=== PATIENT | female | born 2000 | race Two or more races ===

== ENCOUNTER 2023-12-28 13:55 | Outpatient (CLI) | payer MEDICAID, SELFPAY ==
--- NOTE | 2023-12-28 14:00 | CRLHL7_ITS ---
For Patients: As a result of the Cures Act, medical imaging exams and procedure reports are released immediately into your electronic medical record. You may view this report before your referring provider. If you have questions, please contact your health care provider. INDICATION: First trimester scan, establish dates. COMPARISON: None. TECHNIQUE: Real-time otero-scale imaging of the pelvis was performed. FINDINGS: Sonographic imaging demonstrates a single living intrauterine gestation. The embryo demonstrates a regular cardiac rate measuring 167 beats per minute. The embryo`s crown-rump length measurement of 5.9 cm corresponds to a gestational age of 12 weeks 3 days with a sonographic due date of 07/08/2024. Yolk sac not visualized. There are no gross abnormalities noted within the embryo at this early state of development. The gestational sac has a normal appearance. There is n a 10 x 6 x 8 millimeter superior perigestational hemorrhage. The amount of fluid within the sac appears appropriate for gestational age. The cervix is closed. The myometrium appears normal. The ovaries are of normal size. There are no suspicious fluid collections noted in the cul-de-sac. IMPRESSION: Single living intrauterine with sonographic gestational age 12 weeks 3 days and a sonographic due date of 07/08/2024. Subchorionic hemorrhage measuring 10 x 6 x 8 millimeters. Dictated by Ferny Wright MD @ 12/29/2023 10:05:18 AM (Electronically Signed)
== END 2023-12-28 13:56 | disposition home or self-care (01) ==
LOC: US 13:57
PROVIDERS: Visit Provider Physician Assistant
DX: Z34.91 Encounter for supervision of normal pregnancy, unspecified, first trimester (principal); O20.9 Hemorrhage in early pregnancy, unspecified; Z3A.12 12 weeks gestation of pregnancy
CPT/HCPCS: 76801; 76817; 86592; 86703; 86704; 86706; 86762; 86787; 86803; 86850; 86900; 86901; 87086; 87340; 87491; 87591; T1013

== ENCOUNTER 2023-12-28 15:02 | Outpatient (CLI) | payer MEDICAID, SELFPAY ==
[2023-12-28 21:07] LABS: Chlamydia DNA Amplified* NOT DETECTED (No Detected); GC DNA Amplified* NOT DETECTED (No Detected)
== END 2023-12-28 15:03 | disposition home or self-care (01) ==
PROVIDERS: Visit Provider Physician Assistant
DX: Z34.91 Encounter for supervision of normal pregnancy, unspecified, first trimester (principal); Z3A.12 12 weeks gestation of pregnancy
CPT/HCPCS: 86592; 86703; 86704; 86706; 86762; 86787; 86803; 86850; 86900; 86901; 87086; 87340; 87491; 87591

== ENCOUNTER 2024-04-18 09:48 | Outpatient (CLI) | payer MEDICAID, SELFPAY | END 2024-04-18 09:49 | disposition home or self-care (01) | LOC: NFLDREF 04-20 03:10 | PROVIDERS: Visit Provider Physician Assistant | DX: Z34.03 Encounter for supervision of normal first pregnancy, third trimester (principal) | CPT/HCPCS: 86592 ==

== ENCOUNTER 2024-05-20 13:56 | Outpatient (CLI) | payer MEDICAID, SELFPAY | END 2024-05-20 13:57 | disposition home or self-care (01) | LOC: NFLDREF 13:57 | PROVIDERS: Visit Provider Obstetrics & Gynecology | DX: O26.893 Other specified pregnancy related conditions, third trimester (principal); R10.2 Pelvic and perineal pain; Z3A.32 32 weeks gestation of pregnancy | CPT/HCPCS: 87086 ==

== ENCOUNTER 2024-06-03 13:20 | Outpatient (CLI) | payer MEDICAID, SELFPAY | END 2024-06-03 13:21 | disposition home or self-care (01) | LOC: NFLDREF 13:21 | PROVIDERS: Visit Provider Obstetrics & Gynecology | DX: O99.713 Diseases of the skin and subcutaneous tissue complicating pregnancy, third trimester (principal); L29.9 Pruritus, unspecified; Z3A.34 34 weeks gestation of pregnancy | CPT/HCPCS: 82239; 84450; 84460 ==

== ENCOUNTER 2024-06-17 13:48 | Outpatient (CLI) | payer MEDICAID, SELFPAY | END 2024-06-17 13:49 | disposition home or self-care (01) | PROVIDERS: Visit Provider Obstetrics & Gynecology | DX: Z34.01 Encounter for supervision of normal first pregnancy, first trimester (principal); R74.8 Abnormal levels of other serum enzymes | CPT/HCPCS: 80076; 87081; 87653; T1013 ==

== ENCOUNTER 2024-07-02 06:12 | Outpatient (CLI) | payer MEDICAID, SELFPAY ==
[2024-07-02 06:42] VITALS: BP 113/63; PULSE 80; RESP 16; TEMP 37
--- NOTE | 2024-07-02 09:19 | PC.OBNST ---
NST Note NST Note Start: 07/02/24 06:29 Freq: ONCE Status: Active Protocol: Document 07/02/24 09:15 MMB (Rec: 07/02/24 09:17 MMB [id number]) NST Note 1 Para (# of births) 0 EDC 07/11/24 Gestational Age In Weeks & Days 38 Weeks & 5 Days Patient Presented with Complaint(s) of Contractions/cramping Reactive Yes Appropriate for Gestational Age Yes RN Vernon Kaye RN Date 07/02/24 Reactive Yes Appropriate for Gestational Age Yes SUKHI Ortiz RN Date 07/02/24 OB NST charge Yes Complete NST Note via Write Note Yes The provider's electronic signature indicates the NST is reactive/appropriate for gestational age. *Note to provider: If an addendum is required, open the patient's chart and click on the note under the Nurse/Allied Health tab.
== END 2024-07-02 08:45 | disposition home or self-care (01) ==
LOC: OB OUT 06:12 → OB 06:13
PROVIDERS: Visit Provider Obstetrics & Gynecology
DX: O47.1 False labor at or after 37 completed weeks of gestation (principal); Z3A.38 38 weeks gestation of pregnancy
CPT/HCPCS: 59025; G0463

== ENCOUNTER 2024-07-10 01:24 | Inpatient (IN) | payer MEDICAID, SELFPAY ==
[2024-07-09 23:56] VITALS: BP 120/77; PULSE 85; RESP 18; TEMP 36.9
[2024-07-10] VITALS (20 sets, daily range): BP systolic 92–141; BP diastolic 55–74; PULSE 82–114; RESP 16–18; TEMP 36.6–37.2; O2SAT 96–98; BMI 34.0
[2024-07-10 01:01] LABS: Amnisure Rom* Negative
[2024-07-10 02:01] LABS: Basophils Percent Auto 0.2 % (0.0-3.0); Eosinophils Percent Auto 0.1 % (0.0-7.0); Hematocrit 39.8 % (33.0-51.0); Hemoglobin* 13.6 gm/dL (12.0-16.0); Immature Granulocytes Pct Auto 0.4 %; Lymphocytes Percent Auto 17.3 % (20-44); Mean Corpuscular HGB Conc 34 gm/dL (32-36); Mean Corpuscular Hemoglobin 30 pg (26-34); Mean Corpuscular Volume 87 fL (80-100); Monocytes Percent Auto 6.9 % (0.0-11.0); Neutrophils Percent Auto 75.1 % (42.0-72.0); Platelet Count* 222 K/uL (140-440); RDW Coefficient of Variation % 12.7 % (11.5-15.5); Red Blood Count 4.59 m/uL (4.00-5.20); White Blood Count* 11.25 K/uL (4.50-11.00)
[2024-07-10 02:11] LABS: Slide Review Reflex No
--- NOTE | 2024-07-10 04:14 | P.LDBA_ITS ---
Subjective History of Present Illness Date Seen: 07/10/24 Narrative: Patient is being admitted to Labor and Delivery for spontaneous onset of labor. She is a 23 year old at weeks gestation. Her full history and physical was dictated by Dr. Polo on -. Please see this for details. She presented to the hospital at 2351 on 07/09/2024 complaining of contractions. Cervix dilated 4cm, 90% effaced, vertex at 0 station, with contractions every 1-3 minutes. Admitted for labor approximately 2 hours later when cervix was 6 cm dilated. Currently, coping well with contractions. SROM at 0259, clear fluid noted. Specific Issues/Plans G1P Partner: Van Baby: boy! Eithan H&P: NDP on 06/24/24 # Chinese-speaking # Will be in [place] for 3 months, will have routine OB care in [place]. She leaves 01/22/2024 and will return for her 28 week visit. # [facility] Imaging (performed in [place]) 02/23/24: Single living fetus in vertex presentation, posterior fundal placenta, normal anatomy, normal amniotic fluid- SDP: 4cm. Three-vessel umbilical cord, closed cervix 3.9 cm. EFW 35th percentile. 03/22/2024: Vertex, single deepest pocket of amniotic fluid 4.68 cm. Abdominal circumference: 19.3 cm, consistent with of 25.6 weeks. Normal anatomy. EFW:43rd percentile Vaccinations: COVID: 12/28/23 Flu: 12/28/23 Tdap: 05/06/24 RSV: N/A 32 week mental health: [] Last pap: Declined 1st Pap at new OB, Pap OB - Problem Based A/P Additional Plan (1) Spontaneous onset of labor: Status: Acute Delivery/Labor/Induction Plan Plan: expectant management OB Result Labs Blood Type: A (+) positive Rubella: immune RPR/VDLR: nonreactive GBS Status: negative HBsAG: negative OB Exam Physical Exam Vital signs: Temp Pulse Resp BP 97.9 F 99 18 126/74 07/10/24 03:34 07/10/24 02:24 07/10/24 03:34 07/10/24 02:24 Detailed Labor and Delivery Exam Patient Gravid: yes Dilation (cm): 9 Effacement (%): 100 Contraction Frequency: 1-2 minutes Contraction duration (sec): 60 Tachysystole: No Contraction intensity: Strong/Firm Fetus (Single) Station: +1 Amniotic Membrane Status: SROM Amniotic Membrane Fluid Description: Clear Heart Rate Baseline: 140 Monitor Accelerations: Absent Monitor Decelerations: None Retirement Variability: Minimal (3-5)
[2024-07-10] MEDS: OXYTOCIN 30 unit/500 ML in NS 30 UNIT/500 ML BAG 300 UNIT IVPB (07:35)
[2024-07-10] MEDS: LIDOCAINE 1 % PF 30 ML INJECTION (07:50)
[2024-07-10] MEDS: IBUPROFEN 600 MG TABLET PO ×3 (08:40→23:16)
--- NOTE | 2024-07-10 10:06 | W.PM.OBVAGDE ---
OB Procedure Vag Delivery Mother Details Mother Details: The patient is a 23 year-old, 1, Para 0, admitted on 07/10/24 at 39 6/7 weeks gestation in active labor. She presented for care at 11:51 p.m. on 07/09/2024 complaining of contractions and was found to be 4 cm dilated. During her first 2 hours of observation, the contractions increased in frequency and severity and her cervix dilated to 6 cm. Throughout her labor, she coped well with contractions and declined pain medications. : 1 Para: 0 Weeks Gestation: 39.6 Admission Date: 07/10/24 Additional Details Amniotic Membrane Status: SROM Amniotic Membrane Rupture Date: 07/10/24 Amniotic Membrane Rupture Time: 02:59 Amniotic Membrane Fluid Description: Clear Analgesia/Anesthesia Type: None Waterbirth: No Pitcoin: No Labor Onset: 00:37 Complete: 07:03 Pushin:03 Heart: heart tones during second stage were 145 bpm baseline with moderate variability, no accelerations and no decelerations. Delivery Details Delivery Date: 07/10/24 Delivery Time: 07:32 Route of delivery: Infant Gender: Male Viability: Alive; Heart Rate Present Position at Delivery: OA Delivery Details: Delivered via spontaneous vaginal delivery. Infant was placed on maternal abdomen.? Cord was clamped and cut after a 30-60 second delay. Nose and mouth were bulb suctioned.? Infant weight 7 lb 9 oz. 1 Minute Interval Total Score: 7 5 Minute Interval Total Score: 9 Additional Details Shoulder Dystocia: No Placenta Delivery Time: 07:39 Placental Delivery Description: Spontaneous Delivery repair: Vicryl (interrupted 2-0 to repair capsule) and Chromic (3-0 to complete layered perineal repair) Procedure Done: Global Blood Loss: 300 Laceration: Perineal - 3rd Degree (partial, capsule torn but not completely) Episiotomy Description: None Blood Loss Measurement Type: EBL Bakri Used: No Sponge/Need Count Correct: Yes Cord Vessel Description: 3 Vessels Event Summary Status: Mother and infant were stable after delivery. Disposition: floor
[2024-07-10] MEDS: ACETAMINOPHEN 500 MG TABLET 1000 MG PO ×2 (11:47→19:59)
[2024-07-10] MEDS: DOCUSATE SODIUM 100 MG CAPSULE PO (11:51)
[2024-07-10] MEDS: LACTATED RINGERS 500 ML 500 ML 1000 ML IV (17:17)
[2024-07-10 17:26] LABS: Hemoglobin* 11.3 gm/dL (12.0-16.0)
[2024-07-11 00:05] VITALS: BP 100/66; PULSE 79; RESP 18; O2SAT 97
[2024-07-11] MEDS: ACETAMINOPHEN 500 MG TABLET 1000 MG PO ×4 (02:47→22:33)
[2024-07-11] MEDS: IBUPROFEN 600 MG TABLET PO ×3 (05:27→20:34)
[2024-07-11 05:30] VITALS: BP 101/66; PULSE 81; RESP 22; O2SAT 97
[2024-07-11 06:46] LABS: Hemoglobin* 11.7 gm/dL (12.0-16.0)
[2024-07-11 08:20] VITALS: BP 114/75; PULSE 98; RESP 16; TEMP 36.9; O2SAT 97
[2024-07-11] MEDS: DOCUSATE SODIUM 100 MG CAPSULE PO (08:32)
[2024-07-11] MEDS: BENZOCAINE/MENTHOL SPRAY 85 GM AEROSOL 1 APPLIC TOPICAL (08:33)
--- NOTE | 2024-07-11 08:58 | PM.OBPNVD1 ---
OB - PN:Subj Subjective Date Seen: 07/11/24 Patient comments OB post-: no complaints Jackson status: Narrative: The patient feels generally well today. She had an episode dizziness associated with hypotension yesterday, which resolved after an IV fluid bolus. Her bleeding is decreasing this morning, but she did have some increased bleeding while in the shower yesterday. She is working on . She is having a little soreness of the right nipple. OB - PN: Obj Exam Physical Exam: Vital signs: Temp Pulse Resp BP Pulse Ox O2 Del Method 98.5 F 98 16 114/75 97 Room Air 07/11/24 08:20 07/11/24 08:20 07/11/24 08:20 07/11/24 08:20 07/11/24 08:20 07/11/24 08:20 Constitutional: Constitutional: no acute distress Routine Abdominal Exam: Abdominal: Present soft; Absent tenderness Fundus: Present firm Routine Extremities Exam: Extremities: Present normal inspection and pedal edema; Absent calf tenderness Routine Neurological Exam: Neurological: Present alert and oriented X3 Routine Psychiatric Exam: Psychiatric: Present normal affect OB - PN: Obj Data Labs Labs: Laboratory Results - last 24 hr 07/10/24 07/11/24 17:19 06:18 Hgb 11.3 L 11.7 L OB - PN: A/P Delivery Assessment and Plan (1) Status post normal vaginal delivery: Status: Acute Plan day: 1 Plan: routine care
[2024-07-11 16:48] VITALS: BP 99/64; PULSE 79; RESP 16; TEMP 37; O2SAT 97
[2024-07-11 20:37] VITALS: BP 101/66; PULSE 82; RESP 20; O2SAT 98
[2024-07-12] MEDS: IBUPROFEN 600 MG TABLET PO ×4 (02:25→22:04)
[2024-07-12 02:26] VITALS: BP 100/64; PULSE 85; RESP 22; TEMP 36.9; O2SAT 98
[2024-07-12] MEDS: OXYCODONE 5 MG TABLET PO ×2 (02:52→07:51)
[2024-07-12] MEDS: ACETAMINOPHEN 500 MG TABLET 1000 MG PO ×3 (04:36→18:57)
--- NOTE | 2024-07-12 07:25 | P.DS_ITS ---
DS: Providers Provider Date Seen: 07/12/24 Date of admission: 07/10/24 01:24 Primary care physician: Not a Local Provider Admitting Clinician: Gina Lewis MD Consults: 07/10/24 00:00 Consult to Folder Gluer Operator [CONS] Routine Comment: Reason for Consult:: Discharge Planning Needs Attending Physician on discharge: Sampson DURON APRN Date of Discharge: 07/12/24 DS: Diagnosis Discharge Diagnosis (1) care and examination of lactating mother: Status: Acute (2) Status post normal vaginal delivery: Status: Acute (3) Third degree perineal laceration: Status: Acute (4) Left sided sciatica: Status: Acute Exam Narrative: Exam Narrative: GENERAL APPEARANCE:? normal affect, alert, no distress MOOD:? appropriate CHEST:? clear to auscultation HEART:? regular rate and rhythm ABDOMEN:? soft, non-tender the uterine fundus is [] cm At Umbilicus, Midline and is appropriate for the stage of recovery. PERINEUM:? mild edema of the perineum, there is a Perineal Laceration,? [] that is healing well. EXTREMITIES:? normal and [] edema Const: Vital Signs, click to edit/add: Vital Signs - 24 hr 07/11/24 08:20 07/11/24 16:48 07/11/24 20:37 Temperature 98.5 F 98.6 F Pulse Rate [Pulse Oximeter] 98 79 82 Respiratory Rate 16 16 20 Blood Pressure [Ri ght Arm] 114/75 99/64 101/66 Pulse Oximetry 97 97 98 Oxygen Delivery Me thod Room Air Room Air Room Air 07/12/24 02:26 Temperature 98.5 F Pulse Rate [Pulse Oximeter] 85 Respiratory Rate 22 Blood Pressure [Ri ght Arm] 100/64 Pulse Oximetry 98 Oxygen Delivery Me thod Room Air OB - DS: Summary Hospital Course Hospital Course: Deja is a 23 y.o. G 1 P 1001 who was admitted to L & D for .? She had a NVD [ section] that was [un]complicated [by]. The patient feels well.? The pain is well controlled with current medications.? She has no new complaints.? She is breast feeding and reports things are going [well]. the patient has done well.? Vitals have been stable.? She has remained afebrile.? Has a good appetite, is tolerating a general diet.? She is voiding without difficulty.? She is passing gas and has [not] had a bowel movement.? She is ambulating and denies any dizziness.? Has small amount of rubra lochia. She is planning [] for prevention.? ?? Problems: []? ?? plan:? Discharge home with baby.? Follow up in 2 weeks and 6 weeks.? , may see if needed? Hgb [pending]. [Iron supplement ordered orally every other day]? [GHTN/Pre-E/Elevated BP diagnosed by elevated BP greater than 4 hours apart]? [Labs WNL or stable with trending]? [Discharge home with BP cuff if does not already have one]? [Follow up in 3-5 days]? [Call for signs/symptoms of preeclampsia]? For pain control of perineum, breast and pelvic pain, take 600 mg Ibuprofen every 6 hours as needed by mouth or 1000 mg acetaminophen (Tylenol) every 6 hours by mouth as needed. You can alternate these so you are taking something every 3 hours as needed. A heating pad can also be used for your abdomen or breasts. You may also take docusate sodium up to twice daily to soften your stools and help to prevent constipation. You may wean off of it when your stools return to normal.? Peripartum Data Infant delivery method: Vaginal Laceration description: Perineal - 3rd Degree Episiotomy description: None complications: none Ste[place] Gender: Male Infant Discharge Plan: Home Status at Discharge Overall status at discharge: patient is progressing back to baseline Time Spent with Patient Time attestation: Total time spent providing and/or coordinating discharge services: Time spent: Less than 30 minutes Discharge Plan Discharge Disposition: Home, Self-Care Date of Admission: 07/10/24 01:24 Attending Provider on Discharge: Zhanna Coker Primary Care Provider: Provider,Not a Local Condition: Stable Anticipated Discharge Date/Time: 07/12/24 12:00 Discharge Medications: No Action [id number] 3-fat com #1 27-1-300 mg capsule 1 cap PO DAILY Discharge Orders: Discharge Order (Routine); Ordered 07/12/24 Ordered By: Zhanna Coker Patient Education: OB Over the Counter Medication Information, OB Vaginal/Breast Feeding Additional Instructions: Discharge instructions were reviewed with the patient including signs and sym ptoms of infection and home going medications Nothing vaginally for 6 weeks: no tampons or intercourse Do not drive while taking narcotic pain medication(s) Off Work or School for 6 weeks Symptoms to report to doctor: * Bleeding that saturates more than one pad per hour * Passing clots larger than the size of a golf ball * Pain not relieved by prescribed medication * Fever above 100.4 degrees Fahrenheit * A foul vaginal odor * Difficulty in emotions, mood, and functions * Thoughts of hurting yourself and/or * Painful, reddened area in your breast * Any drainage, redness, or tenderness in your IV/epidural site * Severe headache that doesn't improve after taking medications * Changes in vision, including temporary loss of vision, blurred vision, and/or light sensitivity * Upper abdominal pain (usually under ribs on the right side) * Decrease in urination or painful, frequent urinating * Chest pain * Shortness of breath * Tenderness or pain with redness and/swelling in the calf(s) of your leg 2-week visit: discuss feeding concerns, review control options and screen for anxiety/depression. 6-week visit for an annual exam. consultation services are available to all mothers and babies for the first year after delivery.? To make an appointment, please call [phone]. Patient verbalized understanding of reviewed discharge instructions. Activity Level: Activity as Tolerated and No strenuous activity Discharge Diet: Regular Diet Detail: Keep stools very soft with regular twice daily stool softeners in high water intake. Follow Up Appointments: [facility] [Provider Group] Forms: [employer] Info Instructions
[2024-07-12] MEDS: DOCUSATE SODIUM 100 MG CAPSULE PO ×2 (07:52→22:04)
[2024-07-12 07:53] VITALS: BP 94/60; PULSE 102; RESP 16; TEMP 36.8; O2SAT 98
--- NOTE | 2024-07-12 13:02 | P.OBPN_ITS ---
OB - PN:Subj Subjective Date Seen: 07/12/24 Narrative: Deja is a 23 year old who was admitted for and proceeded to have a vaginal with a 3rd degree laceration that was repaired. The patient feels okay but had a sudden onset of back pain last night that was severe and is imp eding her mobility. She was given a dose of oxycodone x 1 and had some relief. She has low back pain with shooting pain down her left buttock. She is unable to get up and out of bed independently this morning. No increasing vaginal pain or pressure. No increase in bleeding. She has been able to urinate without problems. She is passing gas. she has not yet had a bowel movement. She is and states that baby is doing well and she only has minimal nipple pain. Scant rubra.? She is unable to ambulate at this time. OB - PN: Obj Exam Physical Exam: Vital signs: Temp Pulse Resp BP Pulse Ox O2 Del Method 98.2 F 102 H 16 94/60 98 Room Air 07/12/24 07:53 07/12/24 07:53 07/12/24 07:53 07/12/24 07:53 07/12/24 07:53 07/12/24 07:53 Narrative: GENERAL APPEARANCE:? normal affect, alert, no distress MOOD:? appropriate CHEST:? clear to auscultation HEART:? regular rate and rhythm ABDOMEN:? soft, non-tender the uterine fundus is at Umbilicus, Midline and is appropriate for the stage of recovery. PERINEUM:? minimal edema of the perineum, perineal laceration repair well approximated with minimal edema and no erythema seen EXTREMITIES:? normal and minimal edema OB - PN: A/P Delivery Assessment and Plan (1) care and examination of lactating mother: Status: Acute (2) Status post normal vaginal delivery: Status: Acute (3) Third degree perineal laceration: Status: Acute (4) Left sided sciatica: Status: Acute (5) Mobility impaired: Status: Acute Plan Comments: PP day #2 Routine care PT referral sent for immobility-recommendation for another night due to difficult mobility. Was given a walker and instruction via PT. See their note. Will need another PT visit tomorrow for insuring same mobility at home. May see as desired Will try flexaril for added pain control. Would like to avoid oxycodone due to constipating effects. Increase docusate sodium to BID PRN since mobility is less than expected. Anticipate discharge
--- NOTE | 2024-07-12 13:39 | PC.SOCIAL ---
Vegetable Preparer Consult: SW reviewed chart to determine reason for consult, but could not find any specific needs. SW met with ore charger to determine in what ways SW could support patient. custom framing specialist was unsure of any needs at this time and would follow-up with SW if concerns/needs arose.
[2024-07-12] MEDS: CYCLOBENZAPRINE HCL 10 MG TABLET PO (14:49)
[2024-07-12 16:27] VITALS: BP 100/64; PULSE 109; RESP 18; TEMP 36.7; O2SAT 96
[2024-07-12 21:23] LABS: Basophils Percent Auto 0.1 % (0.0-3.0); Eosinophils Percent Auto 0.3 % (0.0-7.0); Hematocrit 35.8 % (33.0-51.0); Hemoglobin* 12.1 gm/dL (12.0-16.0); Immature Granulocytes Pct Auto 0.2 %; Lymphocytes Percent Auto 13.7 % (20-44); Mean Corpuscular HGB Conc 34 gm/dL (32-36); Mean Corpuscular Hemoglobin 30 pg (26-34); Mean Corpuscular Volume 89 fL (80-100); Monocytes Percent Auto 8.3 % (0.0-11.0); Neutrophils Percent Auto 77.4 % (42.0-72.0); Platelet Count* 219 K/uL (140-440); RDW Coefficient of Variation % 13.2 % (11.5-15.5); Red Blood Count 4.02 m/uL (4.00-5.20); White Blood Count* 13.58 K/uL (4.50-11.00)
[2024-07-12 21:28] LABS: Slide Review Reflex No
[2024-07-13 00:52] VITALS: BP 101/66; PULSE 109; RESP 16; TEMP 36.9; O2SAT 98
[2024-07-13] MEDS: CYCLOBENZAPRINE HCL 10 MG TABLET PO ×2 (00:57→08:22)
[2024-07-13] MEDS: IBUPROFEN 600 MG TABLET PO ×2 (05:33→11:30)
[2024-07-13] MEDS: ACETAMINOPHEN 500 MG TABLET 1000 MG PO ×2 (05:33→11:30)
[2024-07-13] MEDS: DOCUSATE SODIUM 100 MG CAPSULE PO (08:22)
[2024-07-13 08:25] VITALS: BP 105/71; PULSE 85; RESP 16; TEMP 37; O2SAT 97
--- NOTE | 2024-07-13 09:00 | PM.OBDSVD1 ---
DS: Providers Provider Date Seen: 07/13/24 Date of admission: 07/10/24 01:24 Primary care physician: Not a Local Provider Admitting Clinician: Gina Lewis MD Consults: 07/10/24 00:00 Consult to Green Marketing Analyst [CONS] Routine Comment: Reason for Consult:: Discharge Planning Needs 07/12/24 08:27 Consult to Physical Therapy [CONS] Routine Comment: Reason(s) for PT Consult:: Evaluate and Treat Walking Problem Any Restrictions?:: No Restrictions Comment: Also needs abdominal binder of appropriate size She is supposed to discharge today, but pain is severe Attending Physician on discharge: Poppy Sapp CNM DS: Diagnosis Discharge Diagnosis (1) care and examination of lactating mother: Status: Acute (2) Third degree perineal laceration: Status: Acute (3) Left sided sciatica: Status: Acute (4) Mobility impaired: Status: Acute Problem details: Using walker Exam Narrative: Exam Narrative: GENERAL APPEARANCE:? normal affect, alert, no distress MOOD:? appropriate CHEST:? clear to auscultation HEART:? regular rate and rhythm ABDOMEN:? soft, non-tender the uterine fundus is At Umbilicus, Midline and is appropriate for the stage of recovery. PERINEUM:? mild edema of the perineum, there is a Perineal Laceration,?3rd degree, that is healing well. EXTREMITIES:? normal and trace edema Const: Vital Signs, click to edit/add: Vital Signs - 24 hr 07/12/24 16:27 07/13/24 00:52 07/13/24 08:25 Temperature 98.0 F 98.4 F 98.6 F Pulse Rate [Pulse Oximeter] 109 H 109 H 85 Respiratory Rate 18 16 16 Blood Pressure [Ri ght Arm] 100/64 101/66 105/71 Pulse Oximetry 96 98 97 Oxygen Delivery Me thod Room Air Room Air Room Air Documenting provider has reviewed patient's vital signs: yes OB - DS: Summary Hospital Course Hospital Course: Deja is a 23 y.o. G 1 P 1 who was admitted to L & D for active labor. ?She had a NVD that was complicated by. 3rd degree laceration The patient feels well. ?The pain is well controlled with current medications. ?She has no new complaints, feeling improved from yesterday. ?She is breast feeding and reports things are going well. the patient has improved since yesterday after seeing PT ant starting Flexeril.? Vitals have been stable.? She has remained afebrile.? Has a good appetite, is tolerating a general diet. ?She is voiding without difficulty.? She is passing gas and has not had a bowel movement.? She is ambulating with a walker and denies any dizziness.?She is scheduled to see PT this morning before discharge home. Has small amount of rubra lochia. She is undecided for prevention. Problems: denies Discharge home with baby.? Follow up in 2 weeks and 6 weeks.? , may see if needed? Hgb 12.1. ? Limited mobility due to hip pain. Seeing PT today. Will discharge home with walker. Encouraged to use abdominal binder. PRN Flexeril to assist with pain. Third degree. Recommended Colace BID to keep stool soft. May reduce to 1x per day if haveng very loose stools. Encouraged to continue until 6 weeks .? For pain control of perineum, breast and pelvic pain, take 600 mg Ibuprofen every 6 hours as needed by mouth or 1000 mg acetaminophen (Tylenol) every 6 hours by mouth as needed. You can alternate these so you are taking something every 3 hours as needed. A heating pad can also be used for your abdomen or breasts. You may also take docusate sodium up to twice daily to soften your stools and help to prevent constipation. You may wean off of it when your stools return to normal.? Peripartum Data Infant delivery method: Vaginal Laceration description: Perineal - 3rd Degree complications: none Infant Gender: Male Infant Discharge Plan: Home Status at Discharge Functional status at discharge: independent ambulation Overall status at discharge: patient is progressing back to baseline Time Spent with Patient Time attestation: Total time spent providing and/or coordinating discharge services: Time spent: Less than 30 minutes Discharge Plan Discharge Disposition: Home, Self-Care Date of Admission: 07/10/24 01:24 Attending Provider on Discharge: Poppy Sapp Primary Care Provider: Provider,Not a Local Condition: Stable Anticipated Discharge Date/Time: 07/12/24 12:00 Discharge Medications: New cyclobenzaprine 10 mg Tablet 10 mg PO TID PRN (Reason: Pain) Qty: 20 0RF acetaminophen 500 mg Tablet 1,000 mg PO Q6H PRNQty: 90 0RF docusate sodium 100 mg Capsule 100 mg PO BID Qty: 120 0RF ibuprofen 600 mg Tablet 600 mg PO Q6H PRNQty: 60 0RF Continued [id number] 3-fat com #1 27-1-300 mg capsule 1 cap PO DAILY Discharge Orders: Discharge Order (Routine); Ordered 07/13/24 Ordered By: Poppy Sapp Patient Education: OB Over the Counter Medication Information, OB Vaginal/Breast Feeding Additional Instructions: Discharge instructions were reviewed with the patient including signs and symptoms of infection and home going medications Nothing vaginally for 6 weeks: no tampons or intercourse Do not drive while taking narcotic pain medication(s) Off Work or School for 6 weeks 2-week visit: discuss feeding concerns, review control options and screen for anxiety/depression. 6-week visit for an annual exam. consultation services are available to all mothers and babies for the first year after delivery.? To make an appointment, please call [phone].Patient verbalized understanding of reviewed discharge instructions. Activity Level: Activity as Tolerated and No strenuous activity Discharge Diet: Regular Diet Detail: Keep stools very soft with regular twice daily stool softeners in high water intake. Follow Up Appointments: [facility] [Provider Group[facility] Inst[facility]
== END 2024-07-13 12:18 | disposition home or self-care (01) | DRG 768 ==
LOC: OB OUT 01:25 → OB 18:29
PROVIDERS: Obstetrics & Gynecology; Admitting Provider Obstetrics & Gynecology; Visit Provider Obstetrics & Gynecology
DX: O70.20 Third degree perineal laceration during delivery, unspecified (principal); Z37.0 Single live birth; Z3A.39 39 weeks gestation of pregnancy; R42 Dizziness and giddiness; I95.9 Hypotension, unspecified; M54.32 Sciatica, left side; Z74.09 Other reduced mobility
CPT/HCPCS: 36415; 84112; 85018; 85025; 86592; 86850; 86900; 86901; 97116; 97162; 97530; G0463; T1013; A9270; J2003; J7120

== ENCOUNTER 2024-08-05 08:18 | Outpatient (RCR) | payer MEDICAID, SELFPAY ==
--- NOTE | 2024-08-05 13:00 | PT.OPE ---
PT [place] [facility] Eval Start: 08/05/24 08:47 Freq: Status: Active Protocol: Document 08/05/24 12:52 ENM (Rec: 08/05/24 12:53 ENM [id number]) E-signed By Dottie Lopez, DPT Physical Therapy Outpatient Evaluation Insurance Information Recert Due Date 11/03/24 Insurance Name Medicaid,[employer] Medical Diagnosis sciatica, left side Treating Diagnosis low back pain, left leg pain, impaired gait, impaired transfers, muscle weakness, pelvic pain Referring MD Spencer MCKEON Subjective Subjective Patient presents to PT for complaint of low back and left leg pains. This is her first child. They delivered on 07/10, child was 7 pounds. Their vaginal delivery was normal aside from third degree perineal laceration. At the hospital she could barely put weight on her left leg. Their mobility was so limited they were discharged with a walker. Did not have pain during her . The pain starts in her pelvis and then spreads to her glutes and up the back. It feels the worst when getting up at night. Feels the pain all the way down to her toes on the left side. Pain is present but less when sitting then worsens with walking. Laying on her back hurts her coccyx and she cannot lay on her right side. Feels a lot of discomfort in left thigh region. Tried a brace which was painful. Denies any issues with bowel or bladder at this time. When it started: after giving Describes it as: an ache throughout and then sharper pains globally throughout pelvis Timing: increases throughout the day Location: throughout pelvis from front to back , left adductors, left glute Irritability: mod-severe Severity: severe Pain Comments at its best: 4/10 at its worse: 6 or greater depending on how she steps easing: sitting, tylenol aggravating: standing, laying on left side Occupation homemaker Objective Other/Pertinent Lumbar AROM: Objective FF: normal mobility no pain EXT: able to achieve 75% of range with pain at end range SB: WNL + for pain going towards R ROT: WNL + for pain going towards L Hip AROM: did not formally assess due to pain noted pain with seated and supine AROM hip flexion Strength: did not formally assess due to pain noted ability to lift head in supine without pain or notable separation of TA Palpation/joint mobility: Tender to palpation along L adductors, bilateral PSIS, ASIS, left glute gait/balance: Patient ambulates with antalgic gait pattern, decreased weight acceptance LLE and lateral trunk sway compensation Posture: increased lumbar extension, L ASIS/iliac crest elevated, decreased thoracic kyphosis Other: Patient has to assist LLE with transfers performs supine to sit via a long sit due to pain Assessment Assessment/ Patient is a 23 year old female presenting 1 month Impression after giving with low back, pelvic and left leg pains. They did not have any back or pelvic pains during their . They had a third degree perineal laceration during . Right after they started to have pelvic and left leg pains that travel down to their toes. Initially had to use a walker for mobility but this is improving some. They report significant pains with walking, laying, getting out of bed and caring for their child. Assessment was limited due to severity of symptoms and patient healing as they are 4 weeks out from . Their pains are brought on with lumbar extension, right sidebending and left rotation. They are tender to palpation along PSIS, ASIS, left glute and adductors. Gait is very antalgic with decreased weight acceptance on left side and increased horizontal trunk sway. In standing postural impairments include decreased thoracic kyphosis, increased lumbar lordosis and elevated left iliac crest. Session focused on introducing diaphragmatic breathing to help with pressure management and initiation of transverse abdominus. As well as gentle mobility as tolerated. Therapist reinforced icing to pelvic region to help with inflammation and pelvic pain after laceration, patient reporting understanding. Deja would greatly benefit from skilled PT for return to PLOF and full caregiving activities after giving . Primary Functional walking, laying, sitting, standing, getting out of bed, Limitations caring for child Plan of Care Rehabilitation [facility] In 8-10 visits: Goals 1. Patient will be IND with HEP and self management of symptoms 2. Patient will display pain free lumbar ROM WNL in order to perform all household activities 3. Patient will be able to perform supine<>sit without difficulty or discomfort 4. Patient will be able to comfortably lay at night for improved sleep hygiene 5. Patient will be able to ambulate throughout their day with improved mechanics and 3/10 or less pelvis, back and leg pain to progress toward PLOF Coordination/ Referral Source Communication With Treatment Plan/ Electrical Stimulation,Gait Training,Ice/Cold/ Direct Interventions Vasopneumatic,Joint Mobilization,Manual Therapy, Neuromuscular Re-ed,Orthotics/Braces,Self-Care/Home Management,Therapeutic Activities,Therapeutic Exercises Frequency/Duration 1x a week for 8-10 visits Patient Will Be Completion of LTG(s),Independent w/HEP Discharged From Therapy Evaluation Billing Untimed Code 25 Treatment Minutes Complexity Moderate Certification Information Initial 08/05/24 Certification Date Ending Certification 11/03/24 Date Provider Signature Yes Required Provider Signature POC & Medical Necessity Shows Agreement With Physician NPI Number Write NPI# Here Physician Comment/ : Change Physician Signature Please Sign/Date Here & Date Requested
== END 2024-11-14 09:47 | disposition home or self-care (01) ==
PROVIDERS: Visit Provider Physician Assistant
DX: M54.32 Sciatica, left side (principal); Z51.89 Encounter for other specified aftercare
CPT/HCPCS: 97162; 97530

== ENCOUNTER 2024-08-24 10:23 | Outpatient (CLI) | payer MEDICAID, SELFPAY ==
[2024-09-05 14:37] LABS: Pap Test Reviewed by Path Done
== END 2024-08-24 10:24 | disposition home or self-care (01) ==
LOC: LKVREF 10:23
PROVIDERS: Visit Provider Midwife
DX: Z12.4 Encounter for screening for malignant neoplasm of cervix (principal); Z11.51 Encounter for screening for human papillomavirus (HPV)
CPT/HCPCS: 87624; 87625; 88141; 88142